=== PATIENT | male | born 1940 | race Caucasian/White ===

== ENCOUNTER 2023-08-15 18:57 | Inpatient (IN) | payer MEDICARE ==
[2023-08-15] MEDS ORDERED: Acetaminophen 325 MG TAB PO PRN (21:12)
[2023-08-15] MEDS ORDERED: Senokot S 8.6-50 MG TAB PO PRN (21:12)
[2023-08-15] MEDS ORDERED: Ondansetron ODT 4 MG TAB PO PRN (21:12)
[2023-08-15] MEDS ORDERED: Sodium Chloride 0.9% 1,000 ML IV SCH (22:00)
[2023-08-15] MEDS ORDERED: metroNIDAZOLE 500 MG in Premix Bag 1 BAG IVPB SCH (22:00)
[2023-08-15] MEDS ORDERED: QUEtiapine 25 MG TAB PO SCH (22:00)
[2023-08-15 22:59] LABS: Troponin I 0.287 ng/mL (< 0.028)
[2023-08-15] MEDS: Ipratropium/Albuterol 3 ML NEB NEB SCH (23:01)
[2023-08-16] MEDS: Clindamycin/D5W 600 MG in Premix Bag 1 BAG IVPB SCH ×4 (00:14→17:51)
[2023-08-16] MEDS: Sodium Chloride 0.9% 1,000 ML IV SCH ×4 (00:15→21:40)
[2023-08-16] MEDS: Cefepime 2 GM in Sodium Chloride 0.9% 100 ML IVPB SCH ×2 (01:41→15:54)
[2023-08-16] MEDS: Ipratropium/Albuterol 3 ML NEB NEB SCH ×6 (02:14→21:58)
[2023-08-16 02:37] LABS: #Monocytes 2.3 thou/uL (0.11-0.59); #Neutrophils 14.1 thou/uL (1.40-6.50); %Basophils 0.2 % (0.0-1.0); %Eosinophils 0.2 % (0.0-10.0); %Lymphocytes 5.1 % (21.0-51.0); %Monocytes 13.1 % (0.0-10.0); %Neutrophils 80.9 % (42.0-75.0); Hematocrit 32.3 % (42.0-52.0); Hemoglobin 10.8 g/dL (14.0-18.0); Mean Corpuscular HGB CONC 33.4 g/dL (32.0-36.0); Mean Corpuscular Hemoglobin 30.4 pg (27.0-31.0); Mean Platelet Volume 9.3 fL (7.4-10.4); Platelet Count 149 10x3/uL (130-400); RBC Distribution Width 13.5 % (11.5-14.5); Red Blood Cell (RBC) Count 3.55 mill/uL (4.70-6.10); White Blood Cell (WBC) Count 17.4 10x3/uL (4.8-10.8)
[2023-08-16 03:06] LABS: Troponin I 0.493 ng/mL (< 0.028)
[2023-08-16 03:14] LABS: ALT (SGPT) 8 U/L (8-55); AST (SGOT) 16 U/L (5-34); Albumin 3.4 g/dL (3.4-4.8); Alkaline Phosphatase 53 U/L (40-110); Anion Gap 11 mmol/L (10-20); BUN (Urea Nitrogen) 13 mg/dL (8.4-25.7); Bilirubin, Total 0.6 mg/dL (0.2-1.2); Calc. Creatinine Clearance 84 mL/min (70-130); Calcium 8.3 mg/dL (7.8-10.44); Carbon Dioxide 27 mmol/L (23-31); Chloride 102 mmol/L (98-107); Estimated GFR 87; Globulin 2.3 g/dL (2.4-3.5); Glucose 116 mg/dL (83-110); Potassium 4.1 mmol/L (3.5-5.1); Protein, Total 5.7 g/dL (5.8-8.1); Sodium 136 mmol/L (136-145)
[2023-08-16 04:41] LABS: #Monocytes 2.1 thou/uL (0.11-0.59); %Basophils 0.1 % (0.0-1.0); %Eosinophils 0.1 % (0.0-10.0); %Lymphocytes 5.1 % (21.0-51.0); %Monocytes 12.9 % (0.0-10.0); %Neutrophils 81.2 % (42.0-75.0); Hematocrit 32.7 % (42.0-52.0); Hemoglobin 10.5 g/dL (14.0-18.0); Mean Corpuscular HGB CONC 32.1 g/dL (32.0-36.0); Mean Corpuscular Hemoglobin 29.5 pg (27.0-31.0); Mean Corpuscular Volume 91.9 fl (78.0-98.0); Mean Platelet Volume 9.6 fL (7.4-10.4); Platelet Count 159 10x3/uL (130-400); RBC Distribution Width 13.4 % (11.5-14.5); Red Blood Cell (RBC) Count 3.56 mill/uL (4.70-6.10)
[2023-08-16 05:04] LABS: Anion Gap 13 mmol/L (10-20); BUN (Urea Nitrogen) 13 mg/dL (8.4-25.7); Calc. Creatinine Clearance 86 mL/min (70-130); Calcium 8.3 mg/dL (7.8-10.44); Carbon Dioxide 24 mmol/L (23-31); Chloride 102 mmol/L (98-107); Estimated GFR 88; Glucose 107 mg/dL (83-110); Magnesium 1.8 mg/dL (1.6-2.6); Potassium 3.7 mmol/L (3.5-5.1); Sodium 135 mmol/L (136-145)
[2023-08-16] MEDS: Vancomycin 1 GM in Premix Bag 1 BAG IVPB SCH ×2 (05:26→17:51)
[2023-08-16 06:44] LABS: Critical Call Chem Troponin I RESULT DECREASING; Troponin I 0.426 ng/mL (< 0.028)
[2023-08-16] MEDS: Mometasone 100 MCG/Formoterol 5 MCG 120 PUFF INHALER INH SCH ×2 (07:25→18:53)
[2023-08-16] MEDS: QUEtiapine 25 MG TAB PO SCH ×2 (10:18→20:50)
[2023-08-16] MEDS: Divalproex Sodium 250 MG (DR) TAB PO SCH ×2 (10:18→20:50)
[2023-08-16] MEDS: Saccharomyces boulardii 250 MG CAP PO SCH (10:18)
[2023-08-16] MEDS: DULoxetine 60 MG CAP PO SCH (10:18)
[2023-08-16] MEDS: Carvedilol 3.125 MG TAB PO SCH (17:50)
[2023-08-16] MEDS: Donepezil HCl 10 MG TAB PO SCH (20:50)
[2023-08-16] MEDS: Rosuvastatin 20 MG TAB PO SCH (20:50)
[2023-08-17] MEDS: Clindamycin/D5W 600 MG in Premix Bag 1 BAG IVPB SCH ×2 (02:00→09:05)
[2023-08-17] MEDS: Ipratropium/Albuterol 3 ML NEB NEB SCH ×6 (02:00→21:59)
[2023-08-17] MEDS: Cefepime 2 GM in Sodium Chloride 0.9% 100 ML IVPB SCH ×2 (02:56→16:23)
[2023-08-17 05:10] LABS: Vancomycin, Trough 11.8 ug/mL
[2023-08-17 05:22] LABS: Critical Call Chem Troponin I NUR.BR6@0521; Troponin I 0.437 ng/mL (< 0.028)
[2023-08-17] MEDS: Vancomycin 1 GM in Premix Bag 1 BAG IVPB SCH (05:33)
[2023-08-17] MEDS: VANCOMYCIN 1.25 GM/250 ML BAG 1.25 GM in Premix Bag 1 BAG IVPB SCH ×2 (06:15→20:32)
[2023-08-17] MEDS: Sodium Chloride 0.9% 1,000 ML IV SCH ×3 (06:23→20:35)
[2023-08-17] MEDS: Mometasone 100 MCG/Formoterol 5 MCG 120 PUFF INHALER INH SCH ×2 (07:50→22:08)
[2023-08-17 08:13] LABS: #Eosinphils 0.1 thou/uL (0.0-0.7); #Monocytes 0.9 thou/uL (0.11-0.59); #Neutrophils 6.8 thou/uL (1.40-6.50); %Basophils 0.1 % (0.0-1.0); %Eosinophils 1.1 % (0.0-10.0); %Lymphocytes 5.6 % (21.0-51.0); %Monocytes 10.4 % (0.0-10.0); %Neutrophils 82.4 % (42.0-75.0); Hematocrit 30.7 % (42.0-52.0); Hemoglobin 9.8 g/dL (14.0-18.0); Mean Corpuscular HGB CONC 31.9 g/dL (32.0-36.0); Mean Corpuscular Hemoglobin 29.9 pg (27.0-31.0); Mean Corpuscular Volume 93.6 fl (78.0-98.0); Mean Platelet Volume 9.9 fL (7.4-10.4); Platelet Count 127 10x3/uL (130-400); RBC Distribution Width 13.7 % (11.5-14.5); Red Blood Cell (RBC) Count 3.28 mill/uL (4.70-6.10); White Blood Cell (WBC) Count 8.3 10x3/uL (4.8-10.8)
[2023-08-17 08:35] LABS: Anion Gap 9 mmol/L (10-20); BUN (Urea Nitrogen) 12 mg/dL (8.4-25.7); Calc. Creatinine Clearance 88 mL/min (70-130); Carbon Dioxide 27 mmol/L (23-31); Chloride 106 mmol/L (98-107); Estimated GFR 88; Glucose 95 mg/dL (83-110); Potassium 3.8 mmol/L (3.5-5.1); Sodium 138 mmol/L (136-145)
[2023-08-17] MEDS: Divalproex Sodium 250 MG (DR) TAB PO SCH ×2 (09:00→20:33)
[2023-08-17] MEDS: Carvedilol 3.125 MG TAB PO SCH ×2 (09:00→16:17)
[2023-08-17] MEDS: Saccharomyces boulardii 250 MG CAP PO SCH (09:00)
[2023-08-17] MEDS: Aspirin Chewable 81 MG TAB PO SCH (09:00)
[2023-08-17] MEDS: DULoxetine 60 MG CAP PO SCH (09:00)
[2023-08-17] MEDS: QUEtiapine 25 MG TAB PO SCH ×3 (09:00→20:34)
[2023-08-17 16:29] VITALS: BMI 26.3
[2023-08-17] MEDS ORDERED: Cefepime 2 GM in Sodium Chloride 0.9% 100 ML IVPB SCH (16:30)
[2023-08-17] MEDS: Rosuvastatin 20 MG TAB PO SCH (20:33)
[2023-08-17] MEDS: Donepezil HCl 10 MG TAB PO SCH (20:33)
[2023-08-18] MEDS: Ipratropium/Albuterol 3 ML NEB NEB SCH ×6 (01:59→21:30)
[2023-08-18] MEDS ORDERED: Cefepime 2 GM in Sodium Chloride 0.9% 100 ML IVPB SCH (04:00)
[2023-08-18 04:09] LABS: #Eosinphils 0.2 thou/uL (0.0-0.7); #Monocytes 0.7 thou/uL (0.11-0.59); #Neutrophils 5.6 thou/uL (1.40-6.50); %Basophils 0.1 % (0.0-1.0); %Eosinophils 2.2 % (0.0-10.0); %Lymphocytes 5.8 % (21.0-51.0); %Monocytes 9.6 % (0.0-10.0); %Neutrophils 81.9 % (42.0-75.0); Hematocrit 34.4 % (42.0-52.0); Hemoglobin 10.9 g/dL (14.0-18.0); Mean Corpuscular HGB CONC 31.7 g/dL (32.0-36.0); Mean Corpuscular Hemoglobin 29.1 pg (27.0-31.0); Mean Corpuscular Volume 91.7 fl (78.0-98.0); Mean Platelet Volume 9.7 fL (7.4-10.4); Platelet Count 142 10x3/uL (130-400); RBC Distribution Width 13.8 % (11.5-14.5); Red Blood Cell (RBC) Count 3.75 mill/uL (4.70-6.10); White Blood Cell (WBC) Count 6.9 10x3/uL (4.8-10.8)
[2023-08-18 04:34] LABS: Anion Gap 11 mmol/L (10-20); BUN (Urea Nitrogen) 11 mg/dL (8.4-25.7); Calc. Creatinine Clearance 84 mL/min (70-130); Calcium 8.5 mg/dL (7.8-10.44); Carbon Dioxide 24 mmol/L (23-31); Chloride 107 mmol/L (98-107); Estimated GFR 87; Glucose 102 mg/dL (83-110); Potassium 3.3 mmol/L (3.5-5.1); Sodium 139 mmol/L (136-145)
[2023-08-18] MEDS: VANCOMYCIN 1.25 GM/250 ML BAG 1.25 GM in Premix Bag 1 BAG IVPB SCH (06:09)
[2023-08-18] MEDS: Sodium Chloride 0.9% 1,000 ML IV SCH ×3 (06:10→21:27)
[2023-08-18] MEDS: Mometasone 100 MCG/Formoterol 5 MCG 120 PUFF INHALER INH SCH ×2 (08:02→18:50)
[2023-08-18] MEDS: Aspirin Chewable 81 MG TAB PO SCH (09:42)
[2023-08-18] MEDS: Divalproex Sodium 250 MG (DR) TAB PO SCH ×2 (09:42→21:26)
[2023-08-18] MEDS: QUEtiapine 25 MG TAB PO SCH ×2 (09:42→21:26)
[2023-08-18] MEDS: Carvedilol 3.125 MG TAB PO SCH ×2 (09:43→18:13)
[2023-08-18] MEDS: Saccharomyces boulardii 250 MG CAP PO SCH (09:43)
[2023-08-18] MEDS: DULoxetine 60 MG CAP PO SCH (09:43)
[2023-08-18] MEDS: Linezolid 600 MG TAB PO SCH (21:26)
[2023-08-18] MEDS: Rosuvastatin 20 MG TAB PO SCH (21:26)
[2023-08-18] MEDS: Donepezil HCl 10 MG TAB PO SCH (21:26)
[2023-08-19] MEDS: Ipratropium/Albuterol 3 ML NEB NEB SCH ×3 (00:14→10:51)
[2023-08-19] MEDS: Sodium Chloride 0.9% 1,000 ML IV SCH (04:11)
[2023-08-19] MEDS: Mometasone 100 MCG/Formoterol 5 MCG 120 PUFF INHALER INH SCH (07:40)
[2023-08-19 08:08] VITALS: BP 150/82; TEMP 97.8
[2023-08-19] MEDS ORDERED: FLU VACC QS2023(65UP)/MF59C/PF 60 MCG/0.5 ML SYRINGE IM ONE (09:00)
[2023-08-19] MEDS: Divalproex Sodium 250 MG (DR) TAB PO SCH (10:05)
[2023-08-19] MEDS: Aspirin Chewable 81 MG TAB PO SCH (10:06)
[2023-08-19] MEDS: Linezolid 600 MG TAB PO SCH (10:06)
[2023-08-19] MEDS: Carvedilol 3.125 MG TAB PO SCH (10:06)
[2023-08-19] MEDS: QUEtiapine 25 MG TAB PO SCH (10:06)
[2023-08-19] MEDS: Saccharomyces boulardii 250 MG CAP PO SCH (10:06)
[2023-08-19] MEDS: DULoxetine 60 MG CAP PO SCH (10:06)
== END 2023-08-19 14:36 | disposition home or self-care (01) | DRG 871 ==
LOC: T4-A 20:17 → 2NO 08-16 01:22 → T4-A 08-18 14:39 → 2NO 08-18 15:28 → T4-A 08-18 16:19
PROVIDERS: ADMIT Internal Medicine; ATTEND Internal Medicine
DX: A41.9 Sepsis, unspecified organism (principal); I21.A1 Myocardial infarction type 2; L03.115 Cellulitis of right lower limb; L97.919 Non-pressure chronic ulcer of unspecified part of right lower leg with unspecified severity; F02.82 Dementia in other diseases classified elsewhere, unspecified severity, with psychotic disturbance; I25.10 Atherosclerotic heart disease of native coronary artery without angina pectoris; J44.9 Chronic obstructive pulmonary disease, unspecified; E78.5 Hyperlipidemia, unspecified; F39 Unspecified mood [affective] disorder; F41.9 Anxiety disorder, unspecified; F32.A Depression, unspecified; I50.9 Heart failure, unspecified; I87.2 Venous insufficiency (chronic) (peripheral); G30.9 Alzheimer's disease, unspecified; Z99.3 Dependence on wheelchair; E87.6 Hypokalemia; D64.9 Anemia, unspecified; Z89.612 Acquired absence of left leg above knee; Z95.5 Presence of coronary angioplasty implant and graft
CPT/HCPCS: 36415; 36416; 80048; 80053; 80202; 83735; 84145; 84484; 85025; 86140; 93306; 93923; 94640; 97139; J0692; J1650; J3370; J3370-JW; J3490; J7050; J7620